=== PATIENT | female | born 1990 | race Caucasian/White ===

== ENCOUNTER 2017-03-01 08:07 | Inpatient (IN) | payer OTHER ==
[2017-03-01] MEDS ORDERED: Dinoprostone* 10 MG VAG.SUPP VAGINAL ONE (08:26)
--- NOTE | 2017-03-01 19:47 | PTEDU ---
Patient Name: JOHN RICHTER JOHN RICHTER selected video: Never Ever Shake a Baby to view on 03/01/2017 at 7:45:56 PM from [id number]
[2017-03-01] MEDS: Misoprostol TAB* 100 MCG PO SCH (23:50)
[2017-03-02] MEDS: Misoprostol TAB* 100 MCG PO SCH (05:37)
[2017-03-02] MEDS ORDERED: Misoprostol TAB* 100 MCG PO ONE (09:17)
[2017-03-02] MEDS ORDERED: Misoprostol TAB* 100 MCG ONE (09:19)
[2017-03-02] MEDS ORDERED: Misoprostol TAB* 100 MCG VAGINAL ONE (13:05)
[2017-03-02 14:39] LABS: Hematocrit 37 % (35-47); Hemoglobin 12.4 g/dl (12.0-16.0); Mean Corpuscular HGB Conc 34 g/dl (31-36); Mean Corpuscular Hemoglobin 30 pg (27-31); Mean Corpuscular Volume 89 fL (80-97); Mean Platelet Volume 10 um3 (7.4-10.4); Red Cell Distribution Width 14 % (10.5-15); White Blood Count 7.3 10^3/ul (3.5-10.8)
[2017-03-02] MEDS ORDERED: Oxytocin in LR* 20 UNITS/1,000 ML BAG IVPB SCH (18:00)
[2017-03-02] MEDS ORDERED: Oxytocin in LR* 20 UNITS/1,000 ML BAG IVPB ONE (18:21)
--- NOTE | 2017-03-02 20:03 | PTEDU ---
Patient Name: JOHN RICHTER JOHN RICHTER selected video: BBOB: Nurturing Your Gorgeous \T\Growing Baby by to jennifer rodriguez on 03/02/2017 at 8:01:32 PM from [id number]
[2017-03-02] MEDS ORDERED: Promethazine INJ(RESTRICTED)* 25 MG/ML 1 ML VIAL IV PRN (22:24)
[2017-03-02] MEDS ORDERED: Nalbuphine* 20 MG/ML 1 ML VIAL IV PRN (22:24)
[2017-03-03] MEDS ORDERED: OBEPIDURAL* 250 ML ONE (01:53)
[2017-03-03] MEDS ORDERED: fentaNYL* 50 MCG/ML 2 ML VIAL (100 MCG VIAL) ONE (01:54)
[2017-03-03] MEDS ORDERED: Phenylephrine IV* 40 MCG/ML 10 ML SYRINGE IV PUSH PRN ×2 (02:35)
[2017-03-03] MEDS ORDERED: Sodium Citrate/Citric Acid* 15 ML UDC PO PRN (02:35)
[2017-03-03] MEDS ORDERED: Famotidine TAB* 20 MG PO PRN (02:35)
[2017-03-03] MEDS ORDERED: Witch Hazel PAD* JAR TOPICAL PRN (12:36)
[2017-03-03] MEDS ORDERED: Acetaminophen TAB* 325 MG PO PRN (12:36)
[2017-03-03] MEDS ORDERED: Oxytocin in LR* 20 UNITS/1,000 ML BAG IVPB SCH (12:39)
[2017-03-03] MEDS: Dibucaine 1% 28.35 GM TUBE PR PRN (13:53)
[2017-03-03] MEDS: Ibuprofen TAB* 600 MG PO PRN ×2 (13:54→19:59)
[2017-03-03] MEDS: Docusate CAP* 100 MG PO SCH ×2 (13:54→19:59)
[2017-03-03] MEDS: OBEPIDURAL* 250 ML EPIDURAL SCH (16:52)
[2017-03-04] MEDS: OBEPIDURAL* 250 ML EPIDURAL SCH (06:29)
[2017-03-04] MEDS: Ibuprofen TAB* 600 MG PO PRN ×3 (09:23→21:43)
[2017-03-04] MEDS: Docusate CAP* 100 MG PO SCH ×3 (09:23→21:43)
[2017-03-04 09:30] LABS: Hematocrit 29 % (35-47); Mean Corpuscular HGB Conc 34 g/dl (31-36); Mean Corpuscular Hemoglobin 30 pg (27-31); Mean Corpuscular Volume 89 fL (80-97); Mean Platelet Volume 9 um3 (7.4-10.4); Red Blood Count 3.31 10^6/ul (4.0-5.4); Red Cell Distribution Width 14 % (10.5-15); White Blood Count 11.7 10^3/ul (3.5-10.8)
--- NOTE | 2017-03-04 14:11 | PTEDU ---
Patient Name: JOHN RICHTER JOHN RICHTER selected video: Follow Me Mum: The [facility] to Successful to view on 03/04 at 2:09:48 PM [id number]
--- NOTE | 2017-03-04 14:15 | PTEDU ---
Patient Name: JOHN RICHTER JOHN RICHTER selected video: Follow Me Mum: The [facility] to Successful to view on 03/04 at 2:13:55 [id number]
[2017-03-04] MEDS: Ferrous Gluconate TAB* 324 MG TAB PO SCH ×2 (14:31→21:43)
--- NOTE | 2017-03-04 16:25 | PTEDU ---
Patient Name: JOHN RICHTER JOHN RICHTER selected video: Follow Me Mum: The [facility] to Successful to view on 03/04 at 4:23:57 PM from [id number]
[2017-03-05] MEDS: Dibucaine 1% 28.35 GM TUBE PR PRN (02:00)
[2017-03-05] MEDS: Ferrous Gluconate TAB* 324 MG TAB PO SCH (07:17)
[2017-03-05] MEDS: Docusate CAP* 100 MG PO SCH (07:17)
[2017-03-05] MEDS: Ibuprofen TAB* 600 MG PO PRN (07:17)
[2017-03-05 07:27] VITALS: BP 107/62
[2017-03-05] MEDS ORDERED: Influenza VAC *QUAD* 2017-18* 0.5 ML SYRINGE IM ONE (09:00)
== END 2017-03-05 12:42 | disposition home or self-care (01) | DRG 775 ==
LOC: MCHOBOUT 08:07 → MCHOB 11:39
PROVIDERS: ADMIT Midwife; ATTEND Obstetrics & Gynecology
PROC: 10D07Z3 Extraction of Products of Conception, Low Forceps, Via Natural or Artificial Opening (ICD-10-PCS; principal; 2017-03-03)
PROC: 0DQP0ZZ Repair Rectum, Open Approach (ICD-10-PCS; 2017-03-03)
PROC: 4A1HXCZ Monitoring of Products of Conception, Cardiac Rate, External Approach (ICD-10-PCS; 2017-03-03)
PROC: 3E033VJ Introduction of Other Hormone into Peripheral Vein, Percutaneous Approach (ICD-10-PCS; 2017-03-03)
PROC: 3E0P7GC Introduction of Other Therapeutic Substance into Female Reproductive, Via Natural or Artificial Opening (ICD-10-PCS; 2017-03-03)
DX: O69.81X0 Labor and delivery complicated by cord around neck, without compression, not applicable or unspecified (principal); O70.3 Fourth degree perineal laceration during delivery; O48.0 Post-term pregnancy; O76 Abnormality in fetal heart rate and rhythm complicating labor and delivery; O99.824 Streptococcus B carrier state complicating childbirth; Z88.1 Allergy status to other antibiotic agents; Z3A.41 41 weeks gestation of pregnancy; Z37.0 Single live birth; Z90.49 Acquired absence of other specified parts of digestive tract; O66.5 Attempted application of vacuum extractor and forceps
CPT/HCPCS: 36415; 85027; 86850; 86900; 86901; 90686; A9270-GY; J2300; J2540; J2550; J3010; S0191

== ENCOUNTER 2019-04-28 12:11 | Inpatient (IN) | payer OTHER ==
[2019-04-28] MEDS ORDERED: Penicillin G Potassium IV* 5,000,000 UNITS in NS 0.9% 100 ML* 100 ML IVPB ONE (12:54)
[2019-04-28] MEDS ORDERED: Lactated Ringers 1000 ML Bag* 1,000 ML IV ONE (12:54)
--- NOTE | 2019-04-28 13:05 | HP ---
General Information - Reason for Visit IUP at 39 weeks here for term IOL - General Information Maternal Age: 28 Grav: 2 Para: 1 SAB: 0 IEA: 0 Estimated Due Date: 05/05/19 Determined By: Early Ultrasound Gestational Age in Weeks/Days: 39-/ Maternal Blood Type and Rh: O Positive - Results this Serology/RPR Result: Non-Reactive Rubella Result: Immune HBsAg Result: Negative HIV Result: Negative GBS Culture Result: Positive Past Medical History Delivery History: Hx Complicated Vaginal Delivery Delivery History Comment: 03/03/2017 VAVD 9lbs 4oz male complicated by 4th degree laceration. Delivery at [facility] with Dr. Aguirre Pertinent Past Medical History: Non-Contributory Pertinent Past Surgical History: See Records Past Surgical History Comment: 2011 Laproscopic Cholecystectomy 2013 [place] tooth extraction 2015 Cyst removal from scalp Pertinent Family History: See Records Family History Comment: PGM: , breast cancer PGF: DM, Prostate cancer. , heart disease MGM: Thyroid disease MGF: DM - Antepartal Records Antepartal Records: Reviewed, Complicated by: - Previous VAVD with 4th degree laceration. Counseled for elective pLTCS vs. term IOL to decrease risk of repeat tear. Pt spoke with MDs/CNMs and opts for term IOL Review of Systems Constitutional: Comfortable CV Complaint: No Respiratory: Shortness of Breath: No Gastrointestinal: No Nausea/Vomiting, Normal Bowel Movement Genitourinary: No Dysuria, No Bleeding, No Leaking Fluid Musculoskeletal: No Complaint, No Epigastric Pain Neurological: No Headache, No Visual Changes Movement: Normal Exam Allergies/Adverse Reactions: Allergies MS Doxycycline [Doxycycline] Allergy (Intermediate, Verified 04/28/19 12:40) Hives BP 100/75 HR 102 T 98.5 SpO2 98% on RA - Measurements Height: 5 ft 3 in Weight: 192 lb Weight in lbs: 192.494111 Body Mass Index (BMI): 34.0 Pre- Weight: 150 lb Weight Gained This : 42 lbs and 0 ozs - Exam Breast: Breast Exam Deferred CVA: No CVA Tenderness Extremities: No Edema Heart: Normal Rhythm/Heart Sounds HEENT: No Significant Findings Lungs: Clear Bilaterally Rectal: Rectal Exam Deferred Reflexes: DTR 2+ Thyroid: No Thyromegaly - Abdominal Exam Abdomen Exam: Non-Tender, Fundal Height Consistent with Dates Targeted Exam Findings See L&D Outpatient Visit Provider Note for Findings: N/A Estimated Weight: EFW 04/09/19 6lbs 2oz by sonja. EFW 7.5lbs by Dwayne montalvo Cervical Exam: 3cm, 4cm Effacement: 70% Station: -1 Presenting Part: Vertex Membrane Status: Intact Sterile Speculum Exam: Not done Bleeding/Discharge: None EFM Findings - External Monitor Findings Baseline Heart Rate: 135 External Monitor Findings: Accelerations Present, No Pattern of Variable or Late Decelerations, Variability Moderate, Baseline Stable External Monitor Findings Comment: No evidence of metabolic acidemia Contractions: None Assessment/Plan - Assessment IUP at 39-0/7 weeks here for term IOL No evidence of metabolic acidemia GBS + Bishops Score: 9, favorable for induction - Obstetrical Risk Factors Obstetrical Risk Factors: GBS Positive - Plan Plan: Induction, Admit - Anticipate Vaginal Delivery Plan Comment: Admit. PARQ trial amniotomy only vs. IV pitocin and amniotomy for induction. Pt opts for trial amniotomy only but agrees to IV pitocin if no active labor within 2 hours of rupture. Will initiated GBS prophylaxis then proceed with amniotomy induction. Anticipate progression to active labor with . Dr. Sherman aware of pt presence and condition. Agrees with plan - Date/Time of Admission Date of Admission: 04/28/19 Time of Admission: 12:23
[2019-04-28 13:38] LABS: ABS Eosinophils 0.1 10^3/ul (0-0.6); ABS Lymphocytes 1.5 10^3/ul (1.0-4.8); ABS Monocytes 0.4 10^3/ul (0-0.8); ABS Neutrophils 6.2 10^3/ul (1.5-7.7); Eosinophil % 1.4 %; Hematocrit 38 % (35-47); Hemoglobin 13.4 g/dL (12.0-16.0); Lymphocyte % 17.7 %; Mean Corpuscular HGB Conc 35 g/dL (31-36); Mean Corpuscular Hemoglobin 32 pg (27-31); Mean Corpuscular Volume 90 fL (80-97); Mean Platelet Volume 9.3 fL (7.4-10.4); Platelet Count 230 10^3/uL (150-450); Red Blood Count 4.24 10^6 /uL (3.70-4.87); Red Cell Distribution Width 13 % (10-15); White Blood Count 8.2 10^3/uL (3.5-10.8)
[2019-04-28 14:01] LABS: Urine Benzodiazepine Screen None Detected (None Detect); Urine Opiates Screen None Detected (None Detect)
--- NOTE | 2019-04-28 14:18 | PN ---
Progress Note - Progress Note Date of Service: 04/28/19 Note: S: Pt resting comfortably in bed. Had a little lunch. Notes mild cramping s/p VE but nothing strong O: BP 110/69 HR 89 FHT 135bpm. Moderate variability. +Accels. No decels UCs mild q 3 min VE 4cm/80%/vtx -1, AROM to clear fluid A: IUP at 39 weeks here for term IOL No evidence of metabolic acidemia GBS +, first dose of PCN infused P: Continue to monitor. Consider augmentation with IV pitocin PRN.
[2019-04-28] MEDS ORDERED: Oxytocin in LR* 20 UNITS/1,000 ML BAG IVPB ONE (16:05)
[2019-04-28] MEDS ORDERED: Acetaminophen TAB* 325 MG PO PRN (16:26)
[2019-04-28] MEDS ORDERED: Glycerin ADULT SUPP PR PRN (16:26)
--- NOTE | 2019-04-28 16:30 | PROCNOTE ---
[facility] OB: Delivery Note - Delivery A Date of : 04/28/19 Time of : 16:06 [place] Sex: Female - deline "Yael" Score 1 Minute: 6 Score 5 Minutes: 9 Gestational Age in Weeks and Days at Delivery: 39 Weeks and 0 Days Delivery Method: Spontaneous Vaginal Labor: Induced - via amniotomy Did Patient attempt ?: N/A, No Previous Amniotic Fluid: Clear Estimated Blood Loss: 400 Anesthesia/Analgesia: None Delivered By: Howie Santos - Nursery Level of Nursery: Regular/Bedside - Perineum Perineal Injury: 2nd Degree - Deep 2nd degree. Rectal capsule reinforced by Dr. Sherman using 2-0 Vicryl. Remainder of repair by delivering provider. 3-0 Rapide under local infiltration 1% lidocaine. Anatomy restored and good hemostasis achieved. Pt tolerated well - Events Delivery Events of Note: Partial Course of Antibiotics - did not receive 2nd dose of PCN for GBS prophylaxis due to rapid labor progression - Additional Delivery Notes Additional Delivery Notes: Pt admitted for term IOL. Amniotomy to clear fluid led to onset active labor with expected progression to complete. Length of labor 2 hours, 3 min. Pushed x 6 min. liveborn female. Slow, controlled delivery of head. OA to SHEN. Tight nuchal cord noted. Unable to reduce. somersaulted through. Tight cord around body also noted. Both reduced after delivery. Austin initially stunned but responded well to delayed cord clamping, tactile stimulation and suctioning by bulb. Apgars 6/9. Delivered to maternal abdomen. Cord clamped x 2 and cut by delivering provider when pulsations ceased. Spontaneous delivery intact placenta. Membranes complete. Fundus firm to massage with IV pitocin infusing. Repair as above. EBL 400mL. At time of note mother and infant in stable condition. Planning to breast feed.
[2019-04-28] MEDS ORDERED: Ibuprofen TAB* 600 MG ONE (16:35)
[2019-04-28] MEDS ORDERED: Lactated Ringers 1000 ML Bag* 1,000 ML IV SCH (17:00)
[2019-04-28] MEDS ORDERED: Oxytocin in LR* 20 UNITS/1,000 ML BAG IVPB SCH (17:00)
[2019-04-28] MEDS ORDERED: Penicillin G Potassium IV* 2,500,000 UNITS in NS 0.9% 100 ML* 100 ML IVPB SCH (17:30)
[2019-04-28] MEDS ORDERED: Simethicone TAB* 80 MG TAB.CHEW PO SCH (17:30)
[2019-04-28] MEDS: Witch Hazel PAD* JAR TOPICAL PRN (18:14)
[2019-04-28] MEDS: Dibucaine 1% 28.35 GM TUBE PR PRN (18:14)
[2019-04-28] MEDS ORDERED: Lidocaine 1% INJ* 10 MG/ML 30 ML SDV ONE (18:43)
[2019-04-28] MEDS: Docusate CAP* 100 MG PO SCH (22:04)
[2019-04-28] MEDS: Ibuprofen TAB* 600 MG PO SCH (23:05)
[2019-04-29 06:47] LABS: ABS Eosinophils 0.1 10^3/ul (0-0.6); ABS Lymphocytes 1.6 10^3/ul (1.0-4.8); ABS Monocytes 0.6 10^3/ul (0-0.8); ABS Neutrophils 7.6 10^3/ul (1.5-7.7); Eosinophil % 1.2 %; Hematocrit 33 % (35-47); Hemoglobin 11.9 g/dL (12.0-16.0); Lymphocyte % 16.3 %; Mean Corpuscular HGB Conc 36 g/dL (31-36); Mean Corpuscular Hemoglobin 32 pg (27-31); Mean Corpuscular Volume 90 fL (80-97); Mean Platelet Volume 9.1 fL (7.4-10.4); Platelet Count 194 10^3/uL (150-450); Red Blood Count 3.68 10^6 /uL (3.70-4.87); Red Cell Distribution Width 13 % (10-15)
[2019-04-29] MEDS: Ibuprofen TAB* 600 MG PO SCH ×6 (07:15→21:03)
[2019-04-29] MEDS: Docusate CAP* 100 MG PO SCH ×4 (08:04→21:03)
[2019-04-29] MEDS: Dibucaine 1% 28.35 GM TUBE PR PRN (08:05)
[2019-04-29] MEDS ORDERED: Ferrous Gluconate TAB* 324 MG TAB PO SCH (09:00)
[2019-04-30] MEDS: Ibuprofen TAB* 600 MG PO SCH ×2 (03:03→09:16)
[2019-04-30 08:20] VITALS: BP 115/69
[2019-04-30] MEDS: Witch Hazel PAD* JAR TOPICAL PRN (09:17)
[2019-04-30] MEDS: Dibucaine 1% 28.35 GM TUBE PR PRN (09:17)
== END 2019-04-30 13:35 | disposition home or self-care (01) | DRG 807 ==
LOC: MCHOBOUT 12:11 → MCHOB 12:23
PROVIDERS: ADMIT Midwife; ATTEND Midwife
PROC: 10E0XZZ Delivery of Products of Conception, External Approach (ICD-10-PCS; principal; 2019-04-28)
PROC: 0KQM0ZZ Repair Perineum Muscle, Open Approach (ICD-10-PCS; 2019-04-28)
PROC: 10907ZC Drainage of Amniotic Fluid, Therapeutic from Products of Conception, Via Natural or Artificial Opening (ICD-10-PCS; 2019-04-28)
PROC: 4A1HXCZ Monitoring of Products of Conception, Cardiac Rate, External Approach (ICD-10-PCS; 2019-04-28)
DX: O99.824 Streptococcus B carrier state complicating childbirth (principal); Z37.0 Single live birth; O69.1XX0 Labor and delivery complicated by cord around neck, with compression, not applicable or unspecified; O69.2XX0 Labor and delivery complicated by other cord entanglement, with compression, not applicable or unspecified; O70.1 Second degree perineal laceration during delivery; Z3A.39 39 weeks gestation of pregnancy; Z88.1 Allergy status to other antibiotic agents
CPT/HCPCS: 36415; 80307; 85025; 86850; 86900; 86901; A9270-GY; J2540

== ENCOUNTER 2021-07-22 08:26 | Inpatient (IN) ==
[~2021-07-22 08:26] MED LIST: Buffered Lidocaine 1% SYRIN 1 ml INTRADERM ONE; Lactated Ringers 1000 ml BAG 1,000 ML IV ONE
[2021-07-22] MEDS ORDERED: Penicillin G Potassium IV 5,000,000 UNITS in NS 0.9% 100 ml BAG 100 ML IVPB ONE (09:00)
[2021-07-22 09:35] LABS: ABS Eosinophils 0.2 10^3/ul (0-0.6); ABS Lymphocytes 1.2 10^3/ul (1.0-4.8); ABS Monocytes 0.4 10^3/ul (0-0.8); ABS Neutrophils 5.5 10^3/ul (1.5-7.7); Eosinophil % 2.1 %; Hematocrit 35 % (35-47); Hemoglobin 12.1 g/dL (12.0-16.0); Lymphocyte % 16.2 %; Mean Corpuscular HGB Conc 35 g/dL (31-36); Mean Corpuscular Hemoglobin 31 pg (27-31); Mean Corpuscular Volume 89 fL (80-97); Platelet Count 205 10^3/uL (150-450); Red Blood Count 3.92 10^6 /uL (3.70-4.87); Red Cell Distribution Width 13 % (10-15); White Blood Count 7.3 10^3/uL (3.5-10.8)
[2021-07-22 09:58] LABS: Urine Benzodiazepine Screen None Detected (None Detect); Urine Cannabinoids Screen None Detected (None Detect); Urine Opiates Screen None Detected (None Detect)
[2021-07-22] MEDS: Penicillin G Potassium IV 3,000,000 UNITS in NS 0.9% 100 ml BAG 100 ML IVPB SCH ×2 (13:08→17:01)
[2021-07-22] MEDS ORDERED: OBEPIDURAL 0 ML EPIDURAL ONE (18:54)
[2021-07-22] MEDS ORDERED: Oxytocin in LR 20 UNITS/1,000 ML BAG IVPB ONE (19:17)
[2021-07-22] MEDS ORDERED: Dibucaine 1% OINT 28.35 GM TUBE PR PRN (20:20)
[2021-07-22] MEDS ORDERED: Witch Hazel PAD JAR TOPICAL PRN (20:20)
[2021-07-22] MEDS ORDERED: Oxytocin in LR 20 UNITS/1,000 ML BAG IVPB SCH (21:00)
[2021-07-22] MEDS ORDERED: Lactated Ringers 1000 ml BAG 1,000 ML IV SCH (21:00)
[2021-07-23] MEDS ORDERED: Lidocaine 1% VIAL 10 MG/ML VIAL ONE (00:08)
[2021-07-23 07:00] LABS: ABS Eosinophils 0.1 10^3/ul (0-0.6); ABS Lymphocytes 1.4 10^3/ul (1.0-4.8); ABS Monocytes 0.7 10^3/ul (0-0.8); ABS Neutrophils 8.6 10^3/ul (1.5-7.7); Hematocrit 32 % (35-47); Hemoglobin 11.2 g/dL (12.0-16.0); Lymphocyte % 12.9 %; Mean Corpuscular HGB Conc 35 g/dL (31-36); Mean Corpuscular Hemoglobin 32 pg (27-31); Mean Corpuscular Volume 89 fL (80-97); Mean Platelet Volume 9.7 fL (7.4-10.4); Platelet Count 205 10^3/uL (150-450); Red Blood Count 3.56 10^6 /uL (3.70-4.87); Red Cell Distribution Width 13 % (10-15); White Blood Count 10.9 10^3/uL (3.5-10.8)
[2021-07-24 07:48] VITALS: BP 106/72
== END 2021-07-24 17:10 | disposition home or self-care (01) | DRG 807 ==
LOC: MCHOBOUT 08:26 → MCHOB 08:37
PROVIDERS: ADMIT Advanced Practice Midwife; ATTEND Advanced Practice Midwife